=== PATIENT | female | born 1970 | race Caucasian/White ===

== ENCOUNTER 2022-04-12 11:32 | Emergency (ER) | payer OTHER ==
[~2022-04-12] VITALS: Ht 160 cm; Wt 70.3 kg
[2022-04-12] MEDS ORDERED: Mobic7.5 MG PO (15:15)
[2022-04-12] MEDS ORDERED: CYCL10 PO (15:15)
== END 2022-04-12 15:23 | disposition home or self-care (01) ==
LOC: ER 11:32
DX: M54.50 Low back pain, unspecified (principal); Z88.5 Allergy status to narcotic agent; Z87.891 Personal history of nicotine dependence; Z85.3 Personal history of malignant neoplasm of breast
CPT/HCPCS: 72100; A9270; J1885

== ENCOUNTER 2022-09-30 10:04 | Emergency (ER) | payer SELFPAY ==
[~2022-09-30] VITALS: Ht 160 cm; Wt 68.0 kg
[~2022-09-30 10:04] MED LIST: CYCL10 PO; Mobic7.5 MG PO
[2022-09-30 10:20] VITALS: BP 154/85
[2022-09-30] MEDS ORDERED: IBUP800 PO (11:27)
[2022-09-30] MEDS ORDERED: HYDR1TAB94 PO (11:27)
== END 2022-09-30 11:50 | disposition home or self-care (01) ==
LOC: ER 10:04
DX: S22.31XA Fracture of one rib, right side, initial encounter for closed fracture (principal); Z88.5 Allergy status to narcotic agent; Z85.3 Personal history of malignant neoplasm of breast; Z87.891 Personal history of nicotine dependence; W18.30XA Fall on same level, unspecified, initial encounter
CPT/HCPCS: 71101; 96372; 99283-25; J1885

== ENCOUNTER 2022-10-17 16:43 | Emergency (ER) | payer SELFPAY ==
[~2022-10-17] VITALS: Ht 160 cm; Wt 70.3 kg
[~2022-10-17 16:43] MED LIST changes: +HYDR1TAB94 PO; +IBUP800 PO
[2022-10-17 16:49] VITALS: BP 157/85
[2022-10-17] MEDS ORDERED: Norco 5-325 Ta1 EACH PO (17:57)
== END 2022-10-17 18:45 | disposition home or self-care (01) ==
LOC: ER 16:43
DX: S22.31XA Fracture of one rib, right side, initial encounter for closed fracture (principal); M25.511 Pain in right shoulder; Z85.3 Personal history of malignant neoplasm of breast; Z88.5 Allergy status to narcotic agent; Z87.891 Personal history of nicotine dependence; W18.30XA Fall on same level, unspecified, initial encounter
CPT/HCPCS: 99283

== ENCOUNTER 2024-06-18 15:15 | Emergency (ER) | payer BC ==
[~2024-06-18] VITALS: Ht 160 cm; Wt 79.4 kg
[~2024-06-18 15:15] MED LIST changes: +Norco 5-325 Ta1 EACH PO; +PANT40 PO; +Robaxin750 MG PO
[2024-06-18] MEDS ORDERED: PredniSONE 20 MG Tab PO ONE ×2 (15:40→18:30)
[2024-06-18] MEDS ORDERED: Ipratropium/Albuterol SulF 2.5-0.5MG/3 ML Amp INH ONE (15:40)
[2024-06-18] MEDS ORDERED: Amoxicillin 875 MG Tab PO ONE (15:45)
[2024-06-18] MEDS ORDERED: Ketorolac Tromethamine 30mg Vial IM ONE (15:45)
[2024-06-18 16:48] LABS: Influenza A, PCR NEGATIVE (NEGATIVE); Influenza B, PCR NEGATIVE (NEGATIVE); Resp Syncytial Virus, PCR NEGATIVE (NEGATIVE); SARS-Cov-2 (COVID-19) PCR, MMC NEGATIVE (NEGATIVE)
[2024-06-18] MEDS ORDERED: Ipratropium/Albuterol SulF 2.5-0.5MG/3 ML Amp ONE (18:06)
[2024-06-18] MEDS ORDERED: Azithromycin 250 MG Tab PO ONE (18:25)
[2024-06-18] MEDS ORDERED: RX Prepack Albuterol 1 PREPACK/6.7 GM INH UD ONE (18:25)
[2024-06-18] MEDS ORDERED: Prednisone20 MG PO (18:28)
[2024-06-18] MEDS ORDERED: Zithromax500 MG PO (18:28)
[2024-06-18] MEDS ORDERED: Amoxicillin875 MG PO (18:34)
[2024-06-18 18:43] VITALS: BP 154/80
== END 2024-06-18 18:43 | disposition home or self-care (01) ==
LOC: ER 15:15
PROVIDERS: Student in an Organized Health Care Education/Training Program
DX: J20.9 Acute bronchitis, unspecified (principal); H66.92 Otitis media, unspecified, left ear; I48.91 Unspecified atrial fibrillation; Z87.891 Personal history of nicotine dependence
CPT/HCPCS: 0241U; 71046; 94640; 94664; 99284-25; A9270; J1885; J7512